=== PATIENT | male | born 1980 | race Asian ===

== ENCOUNTER 2023-01-28 10:38 | Outpatient (AMB) | payer MEDICAID, SELFPAY ==
--- NOTE | 2023-01-28 11:26 | A.SPINEOV_ITS ---
Intake Intake Visit Reasons: low back pain Intake Note: Mr Barker is here today c/o low back pain radiating down both legs. MRI done @ [facility]. Medical Billing Assistant Required: No Assessment & Plan Assessment & Plan (1) Cervical myelopathy: Code(s): G95.9 - Disease of spinal cord, unspecified Plan Dear Moustapha Thank you for referring Mr Barker to our office today. This is a 42-year-old gentleman who was referred to the office today for evaluation of what he describes as a low back pain which is also associated with a hypersensitivity to his knees going down into his calves and feet. He also reports numbness of his hands as well as significant gait instability. He is so off balance at this point, that if someone even walks by him he will fall over against a wall. He feels very unsteady. Denies any bowel or bladder symptoms. He had a lumbar MRI done at [facility] which shows some mild disc degeneration was sent to see us. He tried physical therapy for the back pain that did not work. He has not had any cortisone injections. He takes Motrin every day. The pain gets worse when he stands and walks and goes away when he sits down. PMH: History of cholecystectomy, appendectomy and hypertension Social hx: He does not smoke, does not drink alcohol or abuse any drugs. He works for the [employer] service. Medications: He takes a hypertensive medication that he cannot remember the name of, and Motrin Allergies: Denies Physical exam: He is awake alert oriented, he has significant loss of strength in the upper lower extremities. He is diffusely 4-/5 in the upper extremities, lower extremities with 2/5 iliopsoas, 3/5 quadriceps and 4-5 tibialis. He is diffusely hyperreflexic with Jorge sign and clonus. He is significantly unstable trying to walk tandem gait. Imaging review: Lumbar MRI shows a mildly degenerative disc at L5-S1 with no significant nerve compression Impression: 42-year-old male presents to the office today for evaluation of low back pain, who also has overlapping symptoms of cervical myelopathy including diffuse weakness, numbness of his hands as well as gait instability. My exam confirms these findings with hyperreflexia and diffuse weakness. I am going to send him for an urgent surgical MRI. He is requesting it be done at [facility] possible because it is close to his home. From the standpoint of his lumbar spine, he has some mild degenerative changes but nothing that needs surgery. Thank you for allowing us to care for your patient. The total time spent with this visit with this patient was 45 minutes reviewing history, physical exam, lumbar imaging review, and implementation of treatment plan or further diagnostic testing Jorden Méndez MD,PhD [facility] Orders: Orders MR cervical spine wo con Today G95.9 - Disease of spinal cord, unspecified Coding Level of Care Code New Pt Level 4 (16203) Diagnoses Cervical myelopathy G95.9
== END 2023-01-28 12:00 | disposition home or self-care (01) ==
PROVIDERS: PCP Nurse Practitioner Family; Referring Provider Nurse Practitioner Family; Visit Provider Neurological Surgery
DX: G95.9 Disease of spinal cord, unspecified (principal)
CPT/HCPCS: 99204

== ENCOUNTER → 2023-01-28 10:38 | Outpatient (BNVA) | payer MEDICAID, SELFPAY | PROVIDERS: PCP Nurse Practitioner Family; Referring Provider Nurse Practitioner Family; Visit Provider Neurological Surgery | DX: G95.9 Disease of spinal cord, unspecified (principal) | CPT/HCPCS: 99202 ==